=== PATIENT | male | born 1970 | race Caucasian/White ===

== ENCOUNTER → 2016-08-24 | Outpatient (CLI) | payer BC | END | disposition home or self-care (01) | LOC: CDC 15:15 | DX: R07.9 Chest pain, unspecified (principal) | CPT/HCPCS: 93000 ==

== ENCOUNTER 2017-07-02 13:00 | Emergency (ER) | payer BC ==
[~2017-07-02] VITALS: Ht 182.9 cm; Wt 87.5 kg
[2017-07-02 13:25] LABS: HEMATOCRIT 44.5 % (38.0-50.0); HEMOGLOBIN 15.7 G/DL (12.5-16.6); MCH 32.3 PG (29.0-34.0); MCHC 35.3 G/DL (30.0-36.0); MCV 91.6 FL (86-99); PLATELET COUNT 212 K/uL (156-360); RBC DIS.WIDTH-CV 11.8 % (11.8-14.6); RBC DIS.WIDTH-SD 39.4 % (39-53); RED BLOOD COUNT 4.86 M/uL (4.00-5.50); WHITE BLOOD COUNT 5.3 K/uL (4.1-10.2)
[2017-07-02 13:34] LABS: APPEARANCE CLEAR ((CLEAR)); BILIRUBIN NEGATIVE; BLOOD NEGATIVE; COLOR STRAW ((YELLOW)); GLUCOSE (STRIP) NEGATIVE; KETONES NEGATIVE; LEUKOCYTES NEGATIVE; NITRITE NEGATIVE; PROTEIN (STRIP) NEGATIVE; SPECIFIC GRAVITY 1.005 (1.000-1.030); UCUL ADDED? NO; UROBILINOGEN 0.2 MG/DL (0.2-1.0)
[2017-07-02 13:37] LABS: CHLORIDE 103 mEq/L (99-109); SODIUM 140 mEq/L (136-147)
[2017-07-02 13:39] LABS: GLUCOSE 90 mg/dL (70-99)
[2017-07-02 13:42] LABS: CREATININE 0.7 mg/dL (0.6-1.3); GFR ESTIMATE (CALCULATED) > 59 mL/min/ (58.99-99999)
[2017-07-02 13:43] LABS: UREA NITROGEN (BUN) 9 mg/dL (9-23)
[2017-07-02] MEDS ORDERED: COLACE100 MG PO (15:42)
[2017-07-02 15:53] VITALS: BP 0/0
== END 2017-07-02 15:54 | disposition home or self-care (01) ==
LOC: EME 13:00
DX: M54.5 Low back pain (principal); K59.00 Constipation, unspecified; F17.210 Nicotine dependence, cigarettes, uncomplicated; Z87.442 Personal history of urinary calculi; Z71.6 Tobacco abuse counseling
CPT/HCPCS: 74021; 80048; 81003; 85027; 99281; 99284; J1885